=== PATIENT | female | born 1965 ===

== ENCOUNTER 2017-07-08 04:40 | Emergency (ER) | payer OTHER ==
[2017-07-08 04:40] VITALS: BMI 23.4
[2017-07-08 04:48] VITALS: RESP 17; TEMP 98.5; O2SAT 99
[2017-07-08] MEDS ORDERED: Sodium Chloride 0.9% 1,000 ML IV STA (04:57)
--- NOTE | 2017-07-08 05:00 | ED PDOC ---
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 She reports going to her neighbors home and they subsequently [id number]. (+) facial pain, abrasions on face, headache. (-) Drug or alcohol use. PCP: YONATAN Past Medical History Vital Signs: Last Vital Signs Temp 98.5 F 07/08/17 04:45 Pulse 104 H 07/08/17 04:45 Resp 17 07/08/17 04:45 BP 117/68 07/08/17 04:45 Pulse Ox 99 07/08/17 06:30 - Medical History PMH: Seizures (last seizure 08/17/15) Denies: Chronic Kidney Disease - Surgical History Surgical History: Denies: No Surg Hx - Family History Family History: States: Hypertension - Social History Alcohol: None Drugs: Denies - Immunization History Hx Tetanus Toxoid Vaccination: No Hx Influenza Vaccination: No Hx Pneumococcal Vaccination: No - Home Medications Home Medications: Ambulatory Orders Medication Instructions Recorded Lamotrigine [Lamictal] 200 mg PO BID 02/14/15 - Allergies Allergies/Adverse Reactions: Allergies Allergy/AdvReac Type Severity Reaction Status Date / Time No Known Allergies Allergy Verified 01/16/16 08:29 Review of Systems ROS Statement: Except As Marked, All Systems Reviewed And Found Negative Skin: Positive for: Other (facial abrasions, facial pain) Neurological: Positive for: Confusion, Seizures Physical Exam - Reviewed Nursing Documentation Reviewed: Yes Vital Signs Reviewed: Yes - Physical Exam Appears: Positive for: Non-toxic, No Acute Distress Head Exam: Positive for: NORMOCEPHALIC. 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 Negative for: Motor/Sensory Deficits - Laboratory Results Result Diagrams: 07/08/17 05:08 07/08/17 05:08 - ECG O2 Sat by Pulse Oximetry: 99 (RA) Medical Decision Making Medical Decision Making: Time: 447 Initial Impression: Seizure secondary to non compliant with lamotrigine Initial Plan: --Head CT W/O Contrast --Maxillofacial CT W/O Contrast --Labs --Lact Acid, Plasma --UDip --ED Urine (POC) --Lamotrigine --Toradol 15mg IVP --IV Fluids -- --545 --CT Head FINDINGS: Brain: No acute intracranial hemorrhage. No significant white matter disease. No edema. Ventricles: No significant ventriculomegaly. Bones: No acute displaced fracture. Sinuses: Unremarkable as visualized. No acute sinusitis. Mastoid air cells: Unremarkable as visualized. No mastoid effusion. IMPRESSION: No acute intracranial hemorrhage, or suspicious mass effect. --551 --CT Maxillofacial Without Intravenous Contrast FINDINGS: Bones/joints: No acute fracture. Soft tissues: Unremarkable. Orbits: Unremarkable. Sinuses: Unremarkable. No air-fluid levels. Other findings: Postoperative change within the left cranium. IMPRESSION: No acute fracture 699 Patient will be signed out to Dr. Ramos pending repeat lactate. Scribe Attestation: Documented by Mateus Wilcox acting as a scribe for Italo Dobbs MD. Provider Scribe Attestation: All medical record entries made by the Scribe were at my direction and personally dictated by me. I have reviewed the chart and agree that the record accurately reflects my personal performance of the history, physical exam, medical decision making, and the department course for this patient. I have also personally directed, reviewed, and agree with the discharge instructions and disposition. Disposition - Clinical Impression Clinical Impression: Seizure disorder - Disposition Referrals: Vijay Nguyen MD [Medical Doctor] - Disposition: Transfer of Care Disposition Time: 07:00 Condition: STABLE Additional Instructions: You MUST take your medication as prescribed. Call Dr. Nguyen's office today for an immediate followup. Instructions: Recurrent Seizures in Adults (ED) Forms: [employer] (Macedonian) Patient Signed Over To: Leti Ramos (at 0700) Handoff Comments: pending repeat lactate.
[2017-07-08 05:32] LABS: BLOOD UREA NITROGEN 13 mg/dl (7-17); CALCIUM 9.6 mg/dL (8.4-10.2); CARBON DIOXIDE 24 mmol/L (22-30); CHLORIDE 104 mmol/L (98-107); GFR AFRICAN-AMERICAN > 60; GLUCOSE,RANDOM 114 mg/dL (65-105); POTASSIUM 4.4 MMOL/L (3.6-5.0); SODIUM 141 mmol/l (132-148)
[2017-07-08 05:34] LABS: BASO # 0.1 K/uL (0.0-0.2); BASO % 0.5 % (0.0-2.0); EOS % 0.3 % (0.0-4.0); HEMATOCRIT 36.7 % (34.0-47.0); LYMPH # 2.1 K/uL (1.0-4.3); LYMPH % 19.2 % (20.0-40.0); MEAN CELL VOLUME 89.9 fl (81.0-99.0); MEAN CORPUSCULAR HEMOGLOBIN 30.1 pg (27.0-31.0); MEAN CORPUSCULAR HGB CONC 33.5 g/dL (33.0-37.0); MEAN PLATELET VOLUME 9.3 fl (7.2-11.7); MONO # 0.8 K/uL (0.0-0.8); MONO % 7.6 % (0.0-10.0); NEUT # 7.9 K/uL (1.8-7.0); NEUT % 72.4 % (50.0-75.0); RED CELL DISTRIBUTION WIDTH 12.9 % (11.5-14.5)
--- NOTE | 2017-07-08 05:47 | CT ---
EXAM: CT Head Without Intravenous Contrast CLINICAL HISTORY: 51 years old, female; Injury or trauma; Injury Unknown; Initial encounter; Abrasion; Face and forehead; Prior surgery; Surgery date: 6+ months; Surgery type: Craniotomy 20years ago; Additional info: Seizure, head injury TECHNIQUE: Axial computed tomography images of the head/brain without intravenous contrast. All CT scans at this facility use one or more dose reduction techniques, viz.: automated exposure control; ma/kV adjustment per patient size (including targeted exams where dose is matched to indication; i.e. head); or iterative reconstruction technique. Coronal and sagittal reformatted images were created and reviewed. COMPARISON: CT - HEAD W/O CONTRAST 2015-09-18 01:51 FINDINGS: Brain: No acute intracranial hemorrhage. No significant white matter disease. No edema. Ventricles: No significant ventriculomegaly. Bones: No acute displaced fracture. Sinuses: Unremarkable as visualized. No acute sinusitis. Mastoid air cells: Unremarkable as visualized. No mastoid effusion. IMPRESSION: No acute intracranial hemorrhage, or suspicious mass effect.
--- NOTE | 2017-07-08 05:53 | CT ---
EXAM: CT Maxillofacial Without Intravenous Contrast CLINICAL HISTORY: 51 years old, female; Injury or trauma; Injury Unknown; Initial encounter; Abrasion; Cheek bone and forehead; Bilateral; Additional info: Seizure, head/facial injury TECHNIQUE: Axial computed tomography images of the face without intravenous contrast. All CT scans at this facility use one or more dose reduction techniques, viz.: automated exposure control; ma/kV adjustment per patient size (including targeted exams where dose is matched to indication; i.e. head); or iterative reconstruction technique. Coronal and sagittal reformatted images were created and reviewed. COMPARISON: None FINDINGS: Bones/joints: No acute fracture. Soft tissues: Unremarkable. Orbits: Unremarkable. Sinuses: Unremarkable. No air-fluid levels. Other findings: Postoperative change within the left cranium. IMPRESSION: No acute fracture
[2017-07-08 07:00] LABS: RBC URINE 9 /hpf (0-3); URINE BACTERIA RARE (<OCC); URINE BILIRUBIN NEGATIVE (NEGATIVE); URINE BLOOD NEGATIVE (NEGATIVE); URINE COLOR YELLOW (YELLOW); URINE GLUCOSE (UA) NEG (Normal); URINE KETONE NEGATIVE (NEGATIVE); URINE LEUKOCYTE ESTERASE MOD Leu/uL (Negative); URINE PROTEIN 100 mg/dL (NEGATIVE); URINE UROBILINOGEN 0.2-1.0 mg/dL (0.2-1.0); WBC CLUMPS MOD /hpf; WBC URINE 18 /hpf (0-5)
--- NOTE | 2017-07-08 07:15 | ED PDOC ---
- Laboratory Results Result Diagrams: 07/08/17 05:08 07/08/17 05:08 - ECG O2 Sat by Pulse Oximetry: 99 (RA) Pulse Ox Interpretation: Normal Medical Decision Making Medical Decision Making: Receiving sign out: Patient signed out to me by Dr. Dobbs at 0700 pending repeat lactate, re- evaluation. Scribe Attestation: Documented by Amanda Elise acting as a scribe for Leti Ramos MD. Provider Attestation: All medical record entries made by the Scribe were at my direction and personally dictated by me. I have reviewed the chart and agree that the record accurately reflects my personal performance of the history, physical exam, medical decision making, and the department course for this patient. I have also personally directed, reviewed, and agree with the discharge instructions and disposition. Disposition Counseled Patient/Family Regarding: Diagnosis - Clinical Impression Clinical Impression: Seizure disorder - POA Present On Arrival: None - Disposition Referrals: Vijay Nguyen MD [Medical Doctor] - Disposition: Routine/Home Disposition Time: 08:00 Condition: IMPROVED Additional Instructions: You MUST take your medication as prescribed. Call Dr. Nguyen's office today for an immediate followup. Instructions: Recurrent Seizures in Adults (ED) Forms: [email or web address] (French) Progress Note - Review of Symptoms Events since last encounter: Time: 821 VBG results reviewed and indicate pH of 7.4; CO2 of 42. Patient reports feeling better. Stable for discharge home.
[2017-07-08 07:20] LABS: VENOUS BLOOD GAS PCO2 42 mmHg (40-60)
[2017-07-08 09:11] VITALS: BP 110/60; PULSE 98
== END 2017-07-08 09:08 | disposition home or self-care (01) ==
LOC: H.ER 04:40
DX: G40.909 Epilepsy, unspecified, not intractable, without status epilepticus (principal); S00.81XA Abrasion of other part of head, initial encounter; W19.XXXA Unspecified fall, initial encounter; Y92.89 Other specified places as the place of occurrence of the external cause; Z98.890 Other specified postprocedural states
CPT/HCPCS: 70450; 70486; 80048; 80299; 81003; 81025; 82803; 83605; 85025; 87086; 96374; 99285; J1885; J7040